=== PATIENT | male | born 1945 | race Caucasian/White ===

== ENCOUNTER 2018-09-29 08:55 | Day surgery (SDC) | payer MEDICARE, BC ==
[~2018-09-29] VITALS: Ht 182.9 cm; Wt 84.1 kg
[~2018-09-29 08:55] MED LIST: CLON.5 PO; LEVSOD50
== END 2018-09-29 11:15 | disposition home or self-care (01) ==
LOC: ORSCSDS 08:55
PROVIDERS: Ophthalmology
PROC: 08RJ3JZ Replacement of Right Lens with Synthetic Substitute, Percutaneous Approach (ICD-10-PCS; principal; 2018-09-29 10:30)
DX: H25.11 Age-related nuclear cataract, right eye (principal); E03.9 Hypothyroidism, unspecified; Z79.899 Other long term (current) drug therapy
CPT/HCPCS: J2001; J2250; J3010; J3301; J7120; V2632

== ENCOUNTER 2018-10-13 08:51 | Day surgery (SDC) | payer MEDICARE, BC ==
[~2018-10-13] VITALS: Ht 182.9 cm; Wt 83.3 kg
--- NOTE | 2018-10-13 10:16 | NUR ---
10/13/[address] IS AWARE OF PT'S LOW HR, NO ORDERS GIVEN.
== END 2018-10-13 11:05 | disposition home or self-care (01) ==
LOC: ORSCSDS 08:51
PROVIDERS: Ophthalmology
PROC: 08RK3JZ Replacement of Left Lens with Synthetic Substitute, Percutaneous Approach (ICD-10-PCS; principal; 2018-10-13 10:30)
DX: H25.12 Age-related nuclear cataract, left eye (principal); E03.9 Hypothyroidism, unspecified; F41.9 Anxiety disorder, unspecified; Z79.899 Other long term (current) drug therapy
CPT/HCPCS: J2001; J2250; J3010; J3301; V2632